=== PATIENT | male | born 1995 | race Caucasian/White ===

== ENCOUNTER 2024-06-16 08:35 | Emergency (ER) | payer OTHER ==
[~2024-06-16] VITALS: Ht 163.8 cm; Wt 61.2 kg
[2024-06-16 08:40] VITALS: BP 104/64; PULSE 52; RESP 14; TEMP 97.7; O2SAT 98
[2024-06-16] MEDS: NACL 0.9% 1,000 ML IV ONE (09:07)
[2024-06-16] MEDS: ONDANSETRON 4 MG/2 ML VIAL IVP ONE (09:07)
[2024-06-16 09:26] LABS: BASOPHILS % (AUTO) 0.4 % (0.0-2.0); EOSINOPHILS # (AUTO) 0.2 K/uL (0-0.4); HEMATOCRIT 42.9 % (36-52); HEMOGLOBIN 14.4 g/dL (12.0-18.0); LYMPHOCYTES # (AUTO) 2.5 K/uL (2.0-11.5); LYMPHOCYTES % (AUTO) 40.1 % (20.5-51.1); MEAN CORPUSCULAR HEMOGLOBIN 29 pg (27-31); MEAN CORPUSCULAR HGB CONC 34 g/dL (33-37); MEAN CORPUSCULAR VOLUME 85.1 fL (80-94); MONOCYTES # (AUTO) 0.4 K/uL (0.8-1.0); MONOCYTES % (AUTO) 6.9 % (1.7-9.3); NEUTROPHILS # (AUTO) 3.1 K/uL (1.8-7.7); NEUTROPHILS % (AUTO) 49.6 % (42.2-75.2); PLATELET COUNT (AUTO) 247 K/uL (140-450); RED BLOOD CELL COUNT(AUTO) 5.04 MIL/uL (4.20-6.10); RED CELL DISTRIBUTION WIDTH 12.5 % (11.6-13.7); WHITE BLOOD COUNT (AUTO) 6.3 K/uL (4.8-10.8)
[2024-06-16 09:39] LABS: ANION GAP 11.6 (8-16); CALCIUM 8.9 mg/dL (8.5-10.1); CARBON DIOXIDE 28.2 mmol/L (21-32); POTASSIUM 3.8 mmol/L (3.5-5.1)
[2024-06-16 09:45] LABS: ALBUMIN 3.9 g/dL (3.4-5.0); BILIRUBIN,DIRECT 0.1 mg/dL (0.0-0.3); TOTAL BILIRUBIN 0.4 mg/dL (0.0-1.0); TOTAL PROTEIN, SERUM 7.9 g/dL (6.4-8.2)
[2024-06-16 10:50] VITALS: BP 104/64; PULSE 52; RESP 14; TEMP 97.7; O2SAT 98
== END 2024-06-16 10:50 | disposition home or self-care (01) ==
LOC: MED 08:35
DX: K59.00 Constipation, unspecified (principal)
CPT/HCPCS: 36415; 74177; 80048; 80076; 83690; 85025; 96361; 96374; 99285; J2405; J7030; Q9967